=== PATIENT | male | born 1995 | race Hispanic/Latino ===

== ENCOUNTER 2022-06-10 03:43 | Emergency (ER) | payer BC, OTHER, SELFPAY ==
[2022-06-10 04:16] LABS: Urine Blood Trace-intact (Negative); Urine Glucose Negative (Negative); Urine Protein Trace (Negative); Urine Specific Gravity >=1.030 (1.005-1.030)
[2022-06-10] MEDS ORDERED: MAGNESIUM SULFATE 1 gm IVPB 1 GM/100 ML BAG IV ONE (04:30)
[2022-06-10] MEDS ORDERED: ONDANSETRON 4 MG/2 ML VIAL ONE (04:30)
[2022-06-10] MEDS ORDERED: MORPHINE 4 MG/ML SYR ONE ×2 (04:30→05:11)
[2022-06-10 04:32] LABS: Absolute Lymphocytes (CBC) 4.3 K/uL (0.7-4.9); Hematocrit 45.4 % (39.6-49.0); Lymphocytes % 43.1 % (15.3-44.8); MCV 86.4 fL (80-100); MPV 7.8 fL (7.6-11.3); RBC Red Blood Cell Count 5.25 M/uL (4.33-5.43)
[2022-06-10 04:45] LABS: Potassium 3.6 mmol/L (3.5-5.1)
[2022-06-10] MEDS ORDERED: TAMSULOSIN 0.4 MG SR CAP ONE (05:11)
[2022-06-10] MEDS ORDERED: KETOROLAC 30 MG/ML INJ ONE (05:32)
--- NOTE | 2022-06-10 05:46 | EDPHYS ---
Physician Documentation [facility] Name: Ernie Montgomery Jr Age: 26 yrs Sex: Male : 1995 Arrival Date: 06/10/2022 Time: 03:47 Bed 18 Private MD: ED Physician Ronen Cruz HPI: 06/10 04:08 This 26 yrs old Male presents to ER via Ambulatory with complaints of Possible rn Kidney Stone. 04:08 The patient complains of pain in the right low back. The pain radiates to the abdomen. rn Onset: The symptoms/episode began/occurred just prior to arrival. Modifying factors: The symptoms are alleviated by nothing. the symptoms are aggravated by nothing. Associated signs and symptoms: Pertinent positives: dysuria, Pertinent negatives: fever, urinary frequency, hematuria. Severity of pain: At its worst the pain was moderate in the emergency department the pain is unchanged. The patient has not experienced similar symptoms in the past. The patient has not recently seen a physician. Historical: - Allergies: 04:07 No Known Allergies; pf1 - Home Meds: 04:07 None [Active]; pf1 - PMHx: 04:07 None; pf1 - PSHx: 04:07 None; pf1 - Social history:: Smoking status: Patient denies any tobacco usage or history of. Patient/guardian denies using alcohol, street drugs. - Family history:: not pertinent. - Hospitalizations: : No recent hospitalization is reported. ROS: 04:08 Constitutional: Negative for fever, chills, and weight loss, Cardiovascular: Negative rn for chest pain, palpitations, and edema, Respiratory: Negative for shortness of breath, cough, wheezing, and pleuritic chest pain, Abdomen/GI: + right flank pain and abd pain Back: Negative for injury and pain, : Negative for injury, bleeding, discharge, and swelling, MS/Extremity: Negative for injury and deformity, Skin: Negative for injury, rash, and discoloration, Neuro: Negative for headache, weakness, numbness, tingling, and seizure. Exam: 04:08 Constitutional: This is a well developed, well nourished patient who is awake, alert, rn appears uncomfortable, standing and pacing Head/Face: Normocephalic, atraumatic. Cardiovascular: Regular rate and rhythm. No pulse deficits. Respiratory: No increased work of breathing, no retractions or nasal flaring. Abdomen/GI: Soft, mild RLQ tenderness, no rebound Skin: Warm, dry MS/ Extremity: Pulses equal, no cyanosis. Neuro: Awake and alert, GCS 15 Vital Signs: 04:02 BP 141 / 90; Pulse 80; Resp 18; Temp 98.4; Pulse Ox 97% on R/A; Weight 172.37 kg; pf1 Height 5 ft. 11 in. (180.34 cm); Pain 9/10; 04:02 Body Mass Index 53.00 (172.37 kg, 180.34 cm) pf1 MDM: 03:52 Patient medically screened. rn 05:40 Differential diagnosis: nephrolithiasis, UTI. rn 05:40 Data reviewed: vital signs, nurses notes, lab test result(s), radiologic studies, CT rn scan, and as a result, I will discharge patient. Counseling: I had a detailed discussion with the patient and/or guardian regarding: the historical points, exam findings, and any diagnostic results supporting the discharge/admit diagnosis, lab results, radiology results, the need for outpatient follow up, to return to the emergency department if symptoms worsen or persist or if there are any questions or concerns that arise at home. Response to treatment: the patient's symptoms have markedly improved after treatment, and as a result, I will discharge patient. Special discussion: I discussed with the patient/guardian in detail that at this point there is no indication for admission to the hospital. It is understood, however, that if the symptoms persist or worsen the patient needs to return immediately for re-evaluation. Based on the history and exam findings, there is no indication for further emergent testing or inpatient evaluation. I discussed with the patient/guardian the need to see the primary care provider for further evaluation of the symptoms. I discussed with the patient/guardian the need to see the urologist for further evaluation of the symptoms. ED course: CT shows stone in bladder, no other acute findings, pain improved, no UTI, will dc home with pain meds and return precautions. . 06/10 04:06 Order name: CBC with Diff; Complete Time: 04:51 rn 06/10 04:06 Order name: Basic Metabolic Panel; Complete Time: 04:51 rn 06/10 03:53 Order name: CT Stone Protocol rn 06/10 04:17 Order name: Urine Dipstick-Ancillary; Complete Time: 04:33 EDMS 06/10 03:53 Order name: Urine Dipstick-Ancillary (obtain specimen); Complete Time: 04:51 rn 06/10 04:06 Order name: IV Start; Complete Time: 04:22 rn Administered Medications: 04:25 Drug: morphine 4 mg Route: IVP; Infused Over: 4 mins; Site: right antecubital; pf1 05:59 Follow up: Response: No adverse reaction; Pain is decreased kd3 04:25 Drug: Zofran (Ondansetron) 4 mg Route: IVP; Site: right antecubital; pf1 05:59 Follow up: Response: No adverse reaction; Nausea is decreased kd3 04:53 Drug: Magnesium Sulfate 1 grams Route: IVPB; Infused Over: 1 hrs; Site: left kd3 antecubital; 05:59 Follow up: Response: No adverse reaction; IV Status: Completed infusion; IV Intake: kd3 100ml 05:12 Drug: morphine 4 mg Route: IVP; Infused Over: 4 mins; Site: left antecubital; kd3 05:59 Follow up: Response: No adverse reaction; Pain is decreased kd3 05:12 Drug: Flomax (tamsulosin) 0.4 mg Route: PO; kd3 06:00 Follow up: Response: No adverse reaction kd3 05:33 Drug: Ketorolac 30 mg Route: IVP; Site: left antecubital; kd3 06:00 Follow up: Response: No adverse reaction; Pain is decreased kd3 Disposition Summary: 06/10/22 05:46 Discharge Ordered Location: Home rn Problem: new rn Symptoms: have improved rn Condition: Stable rn Diagnosis - Urinary calculus, unspecified rn Followup: rn - With: Private Physician - When: As needed - Reason: Recheck today's complaints, Re-evaluation by your physician Discharge Instructions: - Discharge Summary Sheet rn - Kidney Stones rn - Renal Colic rn Forms: - Medication Reconciliation Form rn - Thank You Letter rn - Antibiotic wellness rn - Prescription Opioid Use rn Prescriptions: - Ibuprofen 800 mg Oral Tablet - take 1 tablet by ORAL route every 12 hours As needed take with food; 20 tablet; rn Refills: 0, Product Selection Permitted - Tylenol-Codeine #3 300 mg-30 mg Oral - take 1 tablet by ORAL route every 6-8 hours As needed; 12 tablet; Refills: 0, rn Product Selection Permitted Signatures: Dispatcher [employer] Ronen Marshall MD MD rn Doucette, Kyli RN RN kd3 Trudy heredia, RN RN pf1
--- NOTE | 2022-06-10 05:46 | ER ---
Nurse's Notes [facility] Name: Ernie Montgomery Jr Age: 26 yrs Sex: Male : 1995 Arrival Date: 06/10/2022 Time: 03:47 Bed 18 Private MD: Diagnosis: Urinary calculus, unspecified Presentation: 06/10 04:02 Chief complaint: Patient states: Patient C/O right flank pain of 9 that radiates to pf1 RUQ,onset 2 hours ago. Patient denies any N/V. Coronavirus screen: Vaccine status: Patient reports receiving the 1st dose of the Covid vaccine. Client denies travel out of the [place] in the last 14 days. At this time, the client does not indicate any symptoms associated with coronavirus-19. Ebola Screen: Patient negative for fever greater than or equal to 101.5 degrees Fahrenheit, and additional compatible Ebola Virus Disease symptoms. Initial Sepsis Screen: Does the patient meet any 2 criteria? No. Patient's initial sepsis screen is negative. Does the patient have a suspected source of infection? No. Patient's initial sepsis screen is negative. Risk Assessment: Do you want to hurt yourself or someone else? Patient reports no desire to harm self or others. Onset of symptoms was June 10, 2022. 04:02 Method Of Arrival: Ambulatory pf1 04:02 Acuity: SHEYLA 3 pf1 Historical: - Allergies: 04:07 No Known Allergies; pf1 - Home Meds: 04:07 None [Active]; pf1 - PMHx: 04:07 None; pf1 - PSHx: 04:07 None; pf1 - Social history:: Smoking status: Patient denies any tobacco usage or history of. Patient/guardian denies using alcohol, street drugs. - Family history:: not pertinent. - Hospitalizations: : No recent hospitalization is reported. Screenin:08 [facility] ED Fall Risk Assessment (Adult) History of falling in the last 3 months, pf1 including since admission No falls in past 3 months (0 pts) Confusion or Disorientation No (0 pts) Intoxicated or Sedated No (0 pts) Impaired Gait No (0 pts) Mobility Assist Device Used No (0 pt) Altered Elimination No (0 pt) Score/Fall Risk Level 0 - 2 = Low Risk Oriented to surroundings, Maintained a safe environment, Educated pt \T\ family on fall prevention, incl call for assistance when getting out of bed, Assessed \T\ reinforced patient's understanding of fall precautions, Provided non-skid footwear, Hourly rounding (assess needs \T\ fall precautionary measures) done, Used ambulatory aids as needed (educated on \T\ assisted with), Used gait belt as appropriate. Abuse screen: Denies threats or abuse. Nutritional screening: No deficits noted. Tuberculosis screening: No symptoms or risk factors identified. Assessment: 04:33 General: Appears in no apparent distress. uncomfortable, obese, well groomed, well pf1 developed, Behavior is calm, cooperative, appropriate for age, restless. Pain: Complains of pain in patient C/O right flank pain that radiates to RUQ pain,onset 2hours ago. Pain. Neuro: No deficits noted. Level of Consciousness is awake, alert, obeys commands, Oriented to person, place, time, situation. Cardiovascular: No deficits noted. Capillary refill < 3 seconds Patient's skin is warm and dry. Respiratory: No deficits noted. Airway is patent Trachea midline Respiratory effort is even, unlabored, Respiratory pattern is regular, symmetrical. GI: Reports upper abdominal pain, nausea, vomiting, patient stated vomited x 1 while in the restroom here in the ER. Patient C/O right flank pain that radiates to RUQ pain. : No deficits noted. No signs and/or symptoms were reported regarding the genitourinary system. EENT: No deficits noted. No signs and/or symptoms were reported regarding the EENT system. Derm: No deficits noted. No signs and/or symptoms reported regarding the dermatologic system. Musculoskeletal: No deficits noted. No signs and/or symptoms reported regarding the musculoskeletal system. 05:58 GI: Bowel sounds present X 4 quads. Abdomen is tender to palpation. kd3 Vital Signs: 04:02 BP 141 / 90; Pulse 80; Resp 18; Temp 98.4; Pulse Ox 97% on R/A; Weight 172.37 kg; pf1 Height 5 ft. 11 in. (180.34 cm); Pain 9/10; 04:02 Body Mass Index 53.00 (172.37 kg, 180.34 cm) pf1 ED Course: 03:47 Patient arrived in ED. ja2 03:52 Ronen Cruz MD is Attending Physician. rn 04:07 Triage completed. pf1 04:08 Patient has correct armband on for positive identification. pf1 04:22 CBC with Diff Sent. pf1 04:22 Basic Metabolic Panel Sent. pf1 04:22 Inserted saline lock: 20 gauge in right antecubital area, using aseptic technique. pf1 Blood collected. 04:49 CT Stone Protocol In Process Unspecified. EDMS 04:50 Irma Bautista, RN is Primary Nurse. kd3 05:58 Arm band placed on right wrist. kd3 05:58 No provider procedures requiring assistance completed. IV discontinued, intact, kd3 bleeding controlled, No redness/swelling at site. Pressure dressing applied. Administered Medications: 04:25 Drug: morphine 4 mg Route: IVP; Infused Over: 4 mins; Site: right antecubital; pf1 05:59 Follow up: Response: No adverse reaction; Pain is decreased kd3 04:25 Drug: Zofran (Ondansetron) 4 mg Route: IVP; Site: right antecubital; pf1 05:59 Follow up: Response: No adverse reaction; Nausea is decreased kd3 04:53 Drug: Magnesium Sulfate 1 grams Route: IVPB; Infused Over: 1 hrs; Site: left kd3 antecubital; 05:59 Follow up: Response: No adverse reaction; IV Status: Completed infusion; IV Intake: kd3 100ml 05:12 Drug: morphine 4 mg Route: IVP; Infused Over: 4 mins; Site: left antecubital; kd3 05:59 Follow up: Response: No adverse reaction; Pain is decreased kd3 05:12 Drug: Flomax (tamsulosin) 0.4 mg Route: PO; kd3 06:00 Follow up: Response: No adverse reaction kd3 05:33 Drug: Ketorolac 30 mg Route: IVP; Site: left antecubital; kd3 06:00 Follow up: Response: No adverse reaction; Pain is decreased kd3 Medication: 05:58 VIS not applicable for this client. kd3 Intake: 05:59 IV: 100ml; Total: 100ml. kd3 Outcome: 05:46 Discharge ordered by . rn 05:58 Discharged to home ambulatory. kd3 05:58 Condition: stable 05:58 Discharge instructions given to patient, Instructed on discharge instructions, follow up and referral plans. Demonstrated understanding of instructions, follow-up care, Prescriptions given X 2. 06:00 Patient left the ED. kd3 Signatures: Dispatcher [employer] EDRonen Mendoza MD MD rn Richelle Lopez Kyli RN RN kd3 Trudy heredia RN RN pf1
[2022-06-10 06:19] VITALS: BP 141/90; TEMP 98.4; O2SAT 97
--- NOTE | 2022-06-10 12:08 | RAD REPORT ---
EXAM DESCRIPTION: CT - Stone Protocol - 06/10/2022 6:39 am CLINICAL HISTORY: The patient is 26 years old and is Male; flank/abd pain TECHNIQUE: Axial computed tomography images of the abdomen and pelvis without intravenous contrast. Sagittal and coronal reformatted images were created and reviewed. This CT exam was performed usi ng one or more of the following dose reduction techniques: automated exposure control, adjustment o f the mA and/or kV according to patient size, and/or use of iterative reconstruction technique. COMPARISON: No relevant prior studies available. FINDINGS: Lung bases: Unremarkable. No mass. No consolidation. ABDOMEN: Liver: Hepatomegaly. Gallbladder and bile ducts: Unremarkable. No calcified stones. No ductal dilation. Pancreas: Unremarkable. No ductal dilation. Spleen: Unremarkable. No splenomegaly. Adrenals: Unremarkable. No mass. Kidneys and ureters: See below. Stomach and bowel: Unremarkable. No obstruction. No mucosal thickening. PELVIS: Appendix: No findings to suggest acute appendicitis. Bladder: 2 mm stone in the bladder. Mildly prominent right ureter. Reproductive: Unremarkable as visualized. ABDOMEN and PELVIS: Intraperitoneal space: Unremarkable. No free air. No significant fluid collection. Bones/joints: No acute fracture. No dislocation. Soft tissues: Unremarkable. Vasculature: Unremarkable. No abdominal aortic aneurysm. Lymph nodes: Unremarkable. No enlarged lymph nodes. IMPRESSION: 2 mm stone in the bladder. Mildly prominent right ureter. Correlate with any concern f or recently passed stone. 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 The interpreting radiologist is fully responsible for the content of the report.
== END 2022-06-10 06:00 | disposition home or self-care (01) ==
LOC: ER 03:43
DX: N20.9 Urinary calculus, unspecified (principal)
CPT/HCPCS: 85025; 80048; 36415; 81003; 76377; 74176; J3475; J2405; 99284